=== PATIENT | female | born 1965 | race Caucasian/White ===

== ENCOUNTER 2017-07-06 18:29 | Emergency (ER) | payer OTHER ==
[~2017-07-06] VITALS: Ht 165.1 cm; Wt 72.6 kg
[~2017-07-06 18:29] MED LIST: CLIN300 PO; IRON; IRON PO; PROACE100 PO; RXPROACE PO
[2017-07-06] MEDS ORDERED: DEXT30SU PO (19:19)
[2017-07-06] MEDS ORDERED: BENZ100A PO (19:19)
== END 2017-07-06 19:26 | disposition home or self-care (01) ==
LOC: ER 18:29
DX: J02.9 Acute pharyngitis, unspecified (principal); Z88.0 Allergy status to penicillin; Z88.5 Allergy status to narcotic agent; Z88.8 Allergy status to other drugs, medicaments and biological substances; Z79.899 Other long term (current) drug therapy
CPT/HCPCS: 87081; 87430; 99283

== ENCOUNTER 2021-07-21 14:12 | Day surgery (SDC) | payer OTHER ==
[~2021-07-21] VITALS: Ht 165.1 cm; Wt 79.9 kg
[~2021-07-21 14:12] MED LIST changes: +BENZ100A PO; +DEXT30SU PO
== END 2021-07-21 15:55 | disposition home or self-care (01) ==
LOC: ORSCSDS 14:12
PROVIDERS: Surgery
PROC: 0DJD8ZZ Inspection of Lower Intestinal Tract, Via Natural or Artificial Opening Endoscopic (ICD-10-PCS; principal; 2021-07-21 15:30)
DX: Z12.11 Encounter for screening for malignant neoplasm of colon (principal); Z86.010 Personal history of colon polyps; D64.9 Anemia, unspecified; K21.9 Gastro-esophageal reflux disease without esophagitis; Z79.899 Other long term (current) drug therapy
CPT/HCPCS: J2405; J2704; J7120

== ENCOUNTER 2023-01-10 06:10 | Day surgery (SDC) | payer OTHER ==
[2023-01-07 16:22] LABS: BASOPHILS ABSOLUTE AUTO 0.05 K/mm3 (0.00-0.23); BASOPHILS PERCENT AUTO 1 % (0-2); EOSINOPHILS PERCENT AUTO 6 % (0-6); Hematocrit 40.2 % (33.0-51.0); Hemoglobin 13.5 g/dL (11.5-16.0); IMMATURE GRAN ABSOLUTE AUTO 0.02 K/mm3 (0.00-0.10); IMMATURE GRAN PERCENT AUTO 0 % (0-1); LYMPHOCYTES PERCENT AUTO 25 % (21-46); MONOCYTES ABSOLUTE AUTO 0.42 K/mm3 (0.16-1.47); MONOCYTES PERCENT AUTO 6 % (4-13); Mean Corpuscular HGB 29.2 pg (26.0-34.0); Mean Corpuscular HGB Conc 33.6 g/dL (31.5-36.5); Mean Corpuscular Volume 87 fL (80-100); Mean Platelet Volume 10.2 fL (9.1-12.4); NEUTROPHILS ABSOLUTE AUTO 4.64 K/mm3 (1.96-9.15); NEUTROPHILS PERCENT AUTO 63 % (41-73); Platelet Count 364 K/mm3 (150-400); RDW Coefficient Variation 12.5 % (11.7-14.2); RDW Standard Deviation 39.5 fL (35.1-46.3); Red Blood Cell Count 4.63 M/mm3 (3.80-5.20); White Blood Cell Count 7.33 K/mm3 (4.00-11.30)
[2023-01-10] VITALS (16 sets, daily range): BP systolic 104–137; BP diastolic 45–84
[~2023-01-10] VITALS: Ht 165.1 cm; Wt 78.4 kg
--- NOTE | 2023-01-10 07:08 | NUR ---
ONE IV ATTEMPT BY YANNA
--- NOTE | 2023-01-10 07:16 | NUR ---
History, Chart, Medications and Allergies reviewed before start of procedure. Lungs clear T/O to Auscultation. Patient confirms NPO status and agrees with scheduled surgery. Pre-Op teaching done. Pt verbalizes understanding. Patient reports completing Chlorhexadine shower X2 prior to admission to hospital.
--- NOTE | 2023-01-10 14:02 | NUR ---
PT EATING LUNCH REPORTS VERY MILD ABD PAIN, C/O OF BURNING TO URETHRA AFTER BAKER CATH. MEDICATED PER ORDERS W/PYRIDIUM. NAUSEA IMPROVED. PT AMBULATED TO RESTROOM AND VOIDED 200 ML URINE. MOD AMOUNT VAG BLEEDING NOTED. PT NOW BACK TO BED, CALL LIGHT IN REACH.
[2023-01-10] MEDS ORDERED: PHENA200 PO (15:59)
--- NOTE | 2023-01-10 18:49 | NUR ---
SUMMARY POD 0 TOTAL LAP HYSTER, BSO, CYSTOSCOPY AND ANT REPAIR. PT HAVING MOD AMOUNT VAGINAL BLEEDING. PT WAS PLANNING ON DISCHARGING BUT FEELS WEAK AND BP 112/47. DISCUSSED AND DECIDED TO STAY NIGHT. DR PAULSON AWARE. RESTARTED PT'S FLUIDS, RESTING IN BED. PT FEELING DISTENDED IN UPPER ABD, ADVISED TO REST FOR A BIT AND THEN AMBULATE. SPOUSE AT BEDSIDE. CALL LIGHT IN REACH.
[2023-01-11 03:54] VITALS: BP 120/58
--- NOTE | 2023-01-11 07:18 | NUR ---
PT'S SPOUSE BEDSIDE/PT WISHES TO DISCHARGE EATING, VOIDING, PAIN CONTROLLED. PASSING FLATUS.
[2023-01-11 07:19] VITALS: BP 107/48
--- NOTE | 2023-01-11 07:29 | NUR ---
POD 1 S/P LAVH. PT VSS T/O NIGHT. INCISIONS CDI. ABD MILDLY DISTENDED, SOFT TO PALP. PT HAVING SMALL AMT VAGINAL BLEEDING; CHANGED DELMA PAD X3 THIS SHIFT. PAIN MGD W/TORADOL W/REP RELIEF. PT PAWEL REG PO, DENIED N/V, REP +FLATUS. PT AMB INDEP IN ROOM AND HALLS, PAWEL WELL. PT EAGER TO D/C HOME THIS AM.
--- NOTE | 2023-01-11 08:10 | NUR ---
DISCHARGED REVIEWED DC INSTRUCTIONS W/PT, VERBALIZED UNDERSTANDING. IVS DC'D, CATHETERS INTACT. PT LEFT UNIT IN WC W/POSSESSIONS AND DC PAPERWORK IN HAND, ACCOMPANIED BY SPOUSE TO RIDE OUTSIDE.
== END 2023-01-11 07:56 | disposition home or self-care (01) ==
LOC: ORSCMMR 06:10 → ORD 07:30 → ORSCMMR 07:30 → ORD 10:30 → SURS 10:30 → ORSCMMR 01-11 07:56
PROVIDERS: Obstetrics & Gynecology
PROC: 0UT2FZZ Resection of Bilateral Ovaries, Via Natural or Artificial Opening With Percutaneous Endoscopic Assistance (ICD-10-PCS; principal; 2023-01-10 07:30)
PROC: 0UT7FZZ Resection of Bilateral Fallopian Tubes, Via Natural or Artificial Opening With Percutaneous Endoscopic Assistance (ICD-10-PCS; principal; 2023-01-10 07:30)
PROC: 0UT9FZZ Resection of Uterus, Via Natural or Artificial Opening With Percutaneous Endoscopic Assistance (ICD-10-PCS; principal; 2023-01-10 07:30)
PROC: 0JQC0ZZ Repair Pelvic Region Subcutaneous Tissue and Fascia, Open Approach (ICD-10-PCS; principal; 2023-01-10 07:30)
DX: N81.4 Uterovaginal prolapse, unspecified (principal); C56.2 Malignant neoplasm of left ovary; K21.9 Gastro-esophageal reflux disease without esophagitis; F41.9 Anxiety disorder, unspecified
CPT/HCPCS: 36415; 85025; 86850; 86900; 86901; 88309; A9270; J0690; J1100; J1170; J1885; J2250; J2371; J2405; J2704; J2765; J3010; J7120

== ENCOUNTER → 2023-04-12 | Outpatient (CLI) | payer OTHER ==
[~2023-04-12] MED LIST changes: +PHENA200 PO
[2023-04-12 16:03] LABS: Candida species (DNA Probe) Negative (NEGATIVE); G. vaginalis (DNA Probe) Negative (NEGATIVE); T. vaginalis (DNA Probe) Negative (NEGATIVE)
== END | disposition home or self-care (01) ==
LOC: LAB 09:28 → LAB SHORT 09:28
PROVIDERS: Obstetrics & Gynecology
DX: L29.3 Anogenital pruritus, unspecified (principal)
CPT/HCPCS: 87480; 87510; 87660